=== PATIENT | female | born 1990 | race Caucasian/White ===

== ENCOUNTER 2017-11-11 15:36 | Emergency (ER) | payer MEDICAID, SELFPAY ==
[2017-11-11 15:37] VITALS: BP 129/85; PULSE 109; RESP 16; TEMP 37.3; O2SAT 100; BMI 17.6
[2017-11-11 16:01] VITALS: BP 118/78; PULSE 95; RESP 14; O2SAT 98
[2017-11-11 16:10] LABS: Hematocrit 42.7 % (37-47); Hemoglobin 14.4 g/dl (12.0-15.0); Mean Corp Hgb Conc 33.7 g/gl (32-36); Mean Corpuscular Hgb 32.1 pg (27.0-32.0); Mean Corpuscular Volume 95.1 fL (81-99); Mean Platelet Vol. 10.1 fl (6.2-12.0); Platelet Count 181 K/mm3 (150-450); RBC Distribution Width CV 12.5 % (11.6-14.6); RBC Distribution Width SD 42.6 fl (35.1-43.9); Red Blood Count 4.49 M/mm3 (4.2-5.4); White Blood Count 10.7 K/mm3 (4.4-11.0)
[2017-11-11 16:15] LABS: Scan Indicated on CBC? Y/N NO
[2017-11-11 16:31] LABS: Anion Gap 7 (5-15); BUN 16 mg/dL (7-18); Calcium,Total 8.8 mg/dL (8.5-10.1); Chloride 107 mmol/L (98-107); EST Glomerular Filtration Rate 106 mL/min (>60); Est Glom Filt Rate - Afr Amer 128 mL/min (>60); Estimated Creatinine Clearance 85.38 ml/min; Glucose 96 mg/dL (74-106); Potassium 3.6 mmol/L (3.5-5.1); Sodium Level 140 mmol/L (136-145)
[2017-11-11 16:40] LABS: Pregnancy, Serum, hCG Quali. NEGATIVE Negative (0-9 Nonpreg)
--- NOTE | 2017-11-11 16:58 | ED.DCSUM_ITS ---
- ER Visit Summary Date of Service: 11/11/17 Chief Complaint: [] Abdominal pain History of Present Illness: The patient is a 27 F [] complaining of mild left lower quadrant abdominal pain, nausea with concern for possible ectopic . When asked the patient was she said that she took a pretty test at home it was negative however her boss has forced me to come to make sure I do not have an ectopic . Patient reports she had copper tubal tubal ligation coiling procedure done successfully a few years ago. She reports she has not missed any periods. No other complaints at this time. Patient is conversational during history and physical exam. Physical Examination: [] Afebrile, vital signs stable. Abdomen is soft and nontender. No guarding or rebound tenderness. Remainder of exam is unremarkable. Test Results: [] CBC, BMP, serum hCG negative. Emergency Department Course and Treatment: [] Patient evaluated and labs are negative. HCG was negative. At this time she has a very benign presentation and will be discharged to follow-up with her primary care physician. Treatment Plan: [] Follow-up with PCP. Disposition: [] Discharge, stable. Impression: [] Abdominal pain, unknown etiology This note was generated with [employer] dictation software. It may contain incorrect words, spelling, and punctuation that were not noted in review of the chart prior to signing ED Disposition - Plan for ED Patient: Chief Complaint: Abd Pain Referrals: Marko Petersen MD [Primary Care Provider] -
--- NOTE | 2017-11-11 17:00 | ED.DEP ---
ED Disposition - Plan for ED Patient: Disposition: Home or Assisted Living Chief Complaint: Abd Pain Instructions: ED Abdominal Pain Unkn Cause Referrals: Marko Petersen MD [Primary Care Provider] -
[2017-11-11 17:11] VITALS: BP 112/70; PULSE 86; RESP 19; O2SAT 98
== END 2017-11-11 17:12 | disposition home or self-care (01) ==
PROVIDERS: Emergency Provider Emergency Medicine; Family Provider Family Medicine; PCP Family Medicine
DX: R10.32 Left lower quadrant pain (principal); F32.9 Major depressive disorder, single episode, unspecified; Z79.899 Other long term (current) drug therapy; Z72.0 Tobacco use
CPT/HCPCS: 80048; 84703; 85027; 99284

== ENCOUNTER 2018-01-16 11:34 | Emergency (ER) | payer MEDICAID, SELFPAY ==
[2018-01-16 11:34] VITALS: BP 120/83; PULSE 109; RESP 16; TEMP 36.6; O2SAT 98; BMI 15.1
--- NOTE | 2018-01-16 13:19 | RAD_ITS ---
STUDY: X-RAY - LEFT FOOT CLINICAL: Female, 27 years old. Swelling and bruising following injury. TECHNIQUE: 3 view(s) of the foot. COMPARISON: None. FINDINGS: Normal talus, calcaneus, and tarsal bones. Normal visualized subtalar, talonavicular, calcaneocuboid, tarsal and tarsometatarsal articulations. Normal metatarsi. Normal metatarsophalangeal joint of the great toe. Normal tibial and fibular sesamoid bones. Normal interphalangeal joint of the great toe. Normal phalanges of the great toe. Normal second through fifth metatarsophalangeal joints. Normal interphalangeal joints and phalanges of the lesser toes. The soft tissue structures are unremarkable. RAD/Foot min 3 Views IMPRESSION: Normal x-ray examination of the foot. Electronically Signed: Emanuel Benton MD at 13:55 EDT Tel [phone], Service support ,
--- NOTE | 2018-01-16 13:27 | ED.VISSUMM ---
- ER Visit Summary Date of Service: 01/16/18 Chief Complaint: Left foot pain History of Present Illness: The patient is a 27 F presenting with left foot pain. Patient states she fell on Tuesday. She was seen at [facility] and was diagnosed with 5th metatarsal fracture. She was given a postop shoe and crutches. She states that since then she has tripped over a cat and stepped on a lego. She did not hit her head or lose consciousness. She is trying not to bear weight. She complains of persistent pain in left foot. Denies other injury. Physical Examination: Vitals are stable. Patient is afebrile. Alert no acute distress. HEENT exam is unremarkable. Neck is nontender Lungs are clear and equal bilaterally. Heart is regular rate and rhythm. Extremities left foot ecchymosis, tenderness lateral left foot. Skin is warm and dry. No focal neurologic deficit. Remainder of exam is unremarkable. Emergency Department Course and Treatment: Left foot x-ray shows no acute process. Patient is advised to ice and elevate. She was given boot orthosis. Advised to use NSAIDs for pain. Advised to follow with primary care physician. Advised return to ED for worsening complaints. Disposition: Discharge home Impression: Left foot contusion This note was generated with [employer] dictation software. It may contain incorrect words, spelling, and punctuation that were not noted in review of the chart prior to signing ED Disposition - Plan for ED Patient: Chief Complaint: Lower Extremity Injury Instructions: ED Contusion Foot Referrals: Marko Petersen MD [Primary Care Provider] -
--- NOTE | 2018-01-16 13:30 | ED.DCSUM_ITS ---
- ER Visit Summary Date of Service: 01/16/18 Chief Complaint: Left foot pain History of Present Illness: The patient is a 27 F presenting with left foot pain. Patient states she fell on Tuesday. She was seen at [facility] and was diagnosed with 5th metatarsal fracture. She was given a postop shoe and crutches. She states that since then she has tripped over a cat and stepped on a lego. She did not hit her head or lose consciousness. She is trying not to bear weight. She complains of persistent pain in left foot. Denies other injury. Physical Examination: Vitals are stable. Patient is afebrile. Alert no acute distress. HEENT exam is unremarkable. Neck is nontender Lungs are clear and equal bilaterally. Heart is regular rate and rhythm. Extremities left foot ecchymosis, tenderness lateral left foot. Skin is warm and dry. No focal neurologic deficit. Remainder of exam is unremarkable. Emergency Department Course and Treatment: Left foot x-ray shows no acute process. Patient is advised to ice and elevate. She was given boot orthosis. Advised to use NSAIDs for pain. Advised to follow with primary care physician. Advised return to ED for worsening complaints. Disposition: Discharge home Impression: Left foot contusion This note was generated with [employer] dictation software. It may contain incorrect words, spelling, and punctuation that were not noted in review of the chart prior to signing ED Disposition - Plan for ED Patient: Chief Complaint: Lower Extremity Injury Instructions: ED Contusion Foot Referrals: Marko Petersen MD [Primary Care Provider] -
--- NOTE | 2018-01-16 15:26 | ED.DEP ---
ED Disposition - Plan for ED Patient: Chief Complaint: Lower Extremity Injury Instructions: ED Contusion Foot Referrals: Marko Petersen MD [Primary Care Provider] -
[2018-01-16 15:32] VITALS: BP 108/77; PULSE 62; RESP 15; O2SAT 98
== END 2018-01-16 15:33 | disposition home or self-care (01) ==
PROVIDERS: Emergency Provider Emergency Medicine; Family Provider Family Medicine; PCP Family Medicine
DX: S90.32XA Contusion of left foot, initial encounter (principal); W19.XXXA Unspecified fall, initial encounter; Y93.9 Activity, unspecified; Y92.9 Unspecified place or not applicable; Z72.0 Tobacco use
CPT/HCPCS: 73630; 99283

== ENCOUNTER 2021-06-04 10:12 | Day surgery (SDC) | payer MEDICAID, SELFPAY ==
[2021-06-04] VITALS (7 sets, daily range): BP systolic 91–100; BP diastolic 60–73; PULSE 44–74; RESP 16; TEMP 36.1–36.7; O2SAT 96–99; BMI 18.5
--- NOTE | 2021-06-04 | IMM_PTH ---
PATIENT: JUAN MANUEL ANDERSON LOC: [facility] [place] U#:[id number] AGE/SX: 31/F ROOM: RE06/04/[address]: Dr. Niurka Rider DO : 1990 BED: DIS: 06/04/2021 SPEC #: [id number] RECD: 06/05/21 13:48 STATUS: RONNA REReba #: [id number] HANNA: 06/04/21 00:[address]: Niurka Rider DEPT: IMMUNOHISTOCHEMISTRY RECD BY: Vivien Jerez ENTERED: 06/05/21 13:49 SP TYPE: IMMUNO OTHR DR: Dr. Marko Petersen MD Tissues: A - Uterine cervix, NOS B - Endocervical Procedures: p16 (initial) KI-67 (add) PHYSICIAN & INSTITUTION [place] [address] SPECIMEN INFORMATION: Tissue Source: A ? Cervical cone, biopsy, B ? Endocervical curettings Clinical Info: LEEP, high-grade cervical dysplasia Specimen Number: [id number] A4 & B CPT code: 63734 x2, 57483 x2 METHODOLOGY: Deparaffinized sections of prefer/formalin-fixed tissue or PAP/DQ stained slides are incubated with monoclonal/polyclonal antibodies/oligonucleotide probes. Localization is made via biotin free immunoperoxidase method. Appropriate controls are performed and reacted as expected. Results on target cell population are indicated in the following table: RESULTS: ANTIBODY / CLONE RESULT Block A4 P16 (E6H4) positive, block staining Ki-67 (30-9) positive, high Block B1 P16 (E6H4) positive, block staining Ki-67 (30-9) positive, high These tests were developed and their performance characteristics determined by [facility]. They may not have been cleared or approved by the U.S. Food and Drug Administration. The FDA has determined that such clearance or approval is not necessary. The above immunohistochemical/dualISH markers are ordered and reviewed by the Pathologist. INTERPRETATION: A. Cervix, cone biopsy: Moderate to severe squamous dysplasia. B. Endocervical curettings: Moderate squamous dysplasia. SJ:eva 06/05/2021
[2021-06-04] MEDS: Lactated Ringers 1,000 ML 15 ML IV (10:35)
[2021-06-04 10:47] LABS: Internal QC Validated? YES +Cl - CLEAR BKGD
[2021-06-04 10:50] LABS: Pregnancy, Urine Negative Negative
[2021-06-04 10:54] LABS: Hematocrit 41.2 % (37-47); Hemoglobin 14.1 g/dL (12.0-15.0); Mean Corp Hgb Conc 34.2 g/dL (32-36); Mean Corpuscular Hgb 32.6 pg (27.0-32.0); Mean Corpuscular Volume 95.2 fL (81-99); Platelet Count 176 K/mm3 (150-450); RBC Distribution Width CV 12.5 % (11.6-14.6); RBC Distribution Width SD 44.2 fl (35.1-43.9); Red Blood Count 4.33 M/mm3 (4.2-5.4); White Blood Count 9.1 K/mm3 (4.4-11.0)
--- NOTE | 2021-06-04 11:01 | PCM.DC ---
Discharge Instructions Diet Discharge Diet: No restrictions Activity Discharge Activity: May Shower May resume sexual activity in: 4 weeks (No tampons, intercourse, hot tubs, tub baths for 4 weeks until your follow up visit) Weight Bearing Status: Weight bearing as tolerated Lifting Restrictions: Nothing heavier than 20 lbs for first 2 weeks Dressing / Incision Call your doctor if you observe: Fever of 101 or Higher, Numbness or Tingling, Change in Color, Inability to urinate, Inability to have a bowel movement, Using more than 1 pad per hour, Shortness of breath, Dizziness, Fainting spells, Swelling in the ankles, Chest pain, Increased palpitations (irregular heartbeat), Calf discomfort and Uncontrolled pain Follow Up Care Please Follow Up With: bria When: 1 week and 4 weeks Test Results: Test results from this visit will be discussed in further detail at your follow-up appointment, if applicable. Discharge Plan Admission Attending Provider: Niurka Rider Primary Care Provider: Marko Petersen Discharge Orders/Prescriptions Prescriptions: No Action hydroxyzine pamoate [Vistaril] 50 mg Capsule 50 mg PO QHS RF: 0 multivitamin Capsule 1 cap PO DAILY RF: 0 lamotrigine [Lamictal] 100 mg Tablet 100 mg PO QHS RF: 0 prazosin 2 mg Capsule 2 mg PO QHS RF: 0 escitalopram oxalate [Lexapro] 10 mg Tablet 15 mg PO DAILY RF: 0
[2021-06-04] MEDS: Lidocaine 1%/Epi 1:200 (30ml) 30 ML AMPUL (11:03)
--- NOTE | 2021-06-04 11:04 | PCM.OP.BLANK ---
Problems Associated Problem List Diagnoses (1) FITO II (cervical intraepithelial neoplasia II): (2) HPV test positive: (3) History of loop electrical excision procedure (LEEP): Operative Report Date of Procedure: 06/04/21 Indications: Patient had a LEEP procedure in the office for high-grade dysplasia with positive margins. On follow-up colposcopy FITO-2 was noted with high-grade dysplasia on endocervical curettings. HPV test was positive for 16. Risk, benefits, alternatives to a cold knife conization discussed the patient desired to proceed. Surgeon: Niurka Rider DO Motion Picture Scene Builder: None Anesthesia: MAC with local Start time: 112 Stop time: 113 Procedure: Cervical cold knife conization with endocervical curettings Specimen: Cervical cone biopsy marked at 12 o'clock and endocervical curettings Blood loss: < 50 cc Fluids: 700 cc Complications: None Procedure: The patient was taken to the operating room where MAC anesthesia was found to be adequate. She was prepped and draped in the dorsal lithotomy position using yellowfin stirrups. A weighted speculum was placed in the vagina to expose the cervix. A single-tooth tenaculum was placed on the anterior lip of the cervix. Good visualization of the cervix was noted. Lugol's solution was placed over the cervix. High-grade dysplasia was noted between the 10 and 12 o'clock position on the cervix. 10 cc of 1% lidocaine with epinephrine was infiltrated circumferentially around the cervix. Using an angled 11 blade, a cone biopsy was taken of the cervix. The cone biopsy was marked at the 12 o'clock position. An endocervical curettage was performed. The cervical cone biopsy and ECC were sent to pathology for review. The cervical bed was made hemostatic with Bovie cautery and Monsel solution. All instruments were removed from the vagina. Vaginal sweep was performed. Instrument counts were correct. Bleeding was hemostatic. Patient was taken to recovery in stable condition.
[2021-06-04] MEDS: Iodine/Potassium Iodide 14ML Bottle 1 DRP TOPICAL (11:21)
[2021-06-04] MEDS: FERRIC SUBSULFATE 8 GM SOLN (11:32)
--- NOTE | 2021-06-04 12:10 | CONE_PTH ---
PATIENT: JUAN MANUEL ANDERSON LOC: [facility] [place] U#:[id number] AGE/SX: 31/F ROOM: RE06/04/[address]: Dr. Niurka Rider DO : 1990 BED: DIS: 06/04/2021 SPEC #: [id number] RECD: 06/04/21 12:57 STATUS: RONNA JACKIE #: [id number] HANNA: 06/04/21 12:[address]: Niurka Rider DEPT: SURGICAL PATHOLOGY RECD BY: Lolis Sweeney ENTERED: 06/04/21 13:31 SP TYPE: Leep Cone ALICIA DR: Dr. Marko Petersen MD Tissues: A - UTERINE CERVIX LEEP B - Endocervical Procedures: Surgery Specimen Level IV Surgery Specimen Level V HEADER OPERATION: Cold cone PRE-OP DIAGNOSIS: History of LEEP, high-grade cervical dysplasia TISSUE SUBMITTED: A ? Biopsy, cervical cone, suture at 12 o?clock, B ? Endocervical curettings MICROSCOPIC DIAGNOSIS A. Cervix, cone biopsy: Moderate to severe squamous dysplasia with HPV changes (HGSIL, FITO II-III). Dysplastic changes also involving the endocervical glands. Endocervical resection margin is positive for dysplastic changes. Mild chronic inflammation. See comment. B. Endocervical curettings: Detached and unoriented fragments of squamous epithelium with moderate squamous dysplasia (HGSIL, FITO II). Fragments of benign endocervical epithelium, benign endometrial tissue, blood and mucous. See comment. ASHWINI:eva 06/05/2021 COMMENT A & B. Immunohistochemistry ([id number]) for surrogate HPV marker (p16) supports the above diagnosis. MICROSCOPIC DESCRIPTION Slides are reviewed. GROSS DESCRIPTION A - Received in fixative is one container labeled with the patient's name and designated biopsy, cervical cone, suture at 12 o?clock. The specimen consists of a previously opened gutierrez, indurated tissue consistent with cervical conization measuring 2 x 1.5 x 0.6 cm. No mucosal lesion is identified. Nonmucosal surface is inked black. The specimen is serially sectioned and submitted entirely in four cassettes as follows: 1 ? 12 to 3 o?clock, 2 ? 3 to 6 o?clock, 3 ? 6 to 9 o?clock, 4 ? 9 to 12 o?clock. B - Received in fixative is one container labeled with the patient's name and designated endocervical curettings. The specimen consists of multiple fragments of hemorrhagic mucoid tissue that in aggregate measure 2.5 x 0.5 x 0.1 cm. The specimen is totally submitted in one cassette. / ASHWINI:eva 06/04/21 TC:5 CPT: 23316, 32385
[2021-06-04] MEDS: HYDROcodone Bitartrate/Apap 5/325 Tablet PO (12:51)
== END 2021-06-04 13:25 | disposition home or self-care (01) ==
LOC: SDC 10:14 → AC 10:15
PROVIDERS: Anesthesiology; PCP Family Medicine; Referring Provider Obstetrics & Gynecology; Visit Provider Obstetrics & Gynecology
PROC: 0UBC7ZZ Excision of Cervix, Via Natural or Artificial Opening (ICD-10-PCS; CPT 57522; principal; 2021-06-04 11:55)
DX: N87.1 Moderate cervical dysplasia (principal); M19.90 Unspecified osteoarthritis, unspecified site; F32.A Depression, unspecified; F41.9 Anxiety disorder, unspecified; Z79.899 Other long term (current) drug therapy
CPT/HCPCS: 57520; 81025; 85027; 86850; 86900; 86901; 87426; 88305; 88307; 88341; 88342; C9803; J7120; J2405

== ENCOUNTER 2022-04-09 08:49 | Day surgery (SDC) | payer OTHER, SELFPAY ==
[2022-04-03 11:41] LABS: Hematocrit 43.4 % (37-47); Hemoglobin 14.5 g/dL (12.0-15.0); Mean Corp Hgb Conc 33.4 g/dL (32-36); Mean Corpuscular Hgb 32.6 pg (27.0-32.0); Mean Corpuscular Volume 97.5 fL (81-99); Mean Platelet Vol. 10.5 fl (6.2-12.0); Platelet Count 193 K/mm3 (150-450); RBC Distribution Width CV 12.6 % (11.6-14.6); RBC Distribution Width SD 45.1 fl (35.1-43.9); Red Blood Count 4.45 M/mm3 (4.2-5.4); White Blood Count 12.6 K/mm3 (4.4-11.0)
[2022-04-03 11:50] LABS: International Normalized Ratio 1.1; Prothrombin Time (Protime)PT. 13.7 SECONDS (11.7-14.9)
[2022-04-03 11:51] LABS: Partial Thromboplast Time 28.3 Seconds (24.1-36.2)
[2022-04-03 12:14] LABS: AST(SGOT) 12 U/L (15-37); Alanine Aminotransfer ALT/SGPT 21 U/L (13-56); Albumin, Serum 3.7 g/dL (3.2-5.0); Alkaline Phosphatase 68 U/L (45-117); Bilirubin, Direct 0.13 mg/dL (0.00-0.30); Globulin 4.1 g/dL (2.2-4.2); Protein, Total 7.8 g/dL (6.4-8.2)
[2022-04-09] VITALS (7 sets, daily range): BP systolic 85–100; BP diastolic 47–62; PULSE 56–91; RESP 14–18; TEMP 36.3–37.3; O2SAT 96–100; BMI 17.0
--- NOTE | 2022-04-09 | IMM_PTH ---
PATIENT: JUAN MANUEL ANDERSON [place] [facility] [id number] AGE/SX: 32/F ROOM: RE04/09/[address]: Dr. Niurka Rider DO : 1990 BED: DIS: 04/09/2022 SPEC #: [id number] RECD: 04/13/22 14:17 STATUS: RONNA REQ #: [id number] HANNA: 04/09/22 00:[address]: Niurka Rider DEPT: IMMUNOHISTOCHEMISTRY RECD BY: Vivien Jerez ENTERED: 04/13/22 14:19 SP TYPE: IMMUNO OTHR DR: MD Dr. Marko Meyer MD Tissues: Uterus, NOS Procedures: p16 (initial) KI-67 (add) P16 (add) PHYSICIAN & INSTITUTION [place] [address] SPECIMEN INFORMATION: Tissue Source: Uterus, hysterectomy Clinical Info: CKC with positive margins, persistent positive HPV and abnormal pap Specimen Number: [id number] #3, 5 & 6 CPT code: 74430, 59805 x5 METHODOLOGY: Deparaffinized sections of prefer/formalin-fixed tissue or PAP/DQ stained slides are incubated with monoclonal/polyclonal antibodies/oligonucleotide probes. Localization is made via biotin free immunoperoxidase method. Appropriate controls are performed and reacted as expected. Results on target cell population are indicated in the following table: RESULTS: ANTIBODY / CLONE RESULT Block 3 P16 (E6H4) positive, block-like Ki-67 (30-9) positive, moderate Block 5 P16 (E6H4) positive, block-like Ki-67 (30-9) positive, moderate Block 6 P16 (E6H4) positive, block-like Ki-67 (30-9) positive, moderate These tests were developed and their performance characteristics determined by [facility]. They may not have been cleared or approved by the U.S. Food and Drug Administration. The FDA has determined that such clearance or approval is not necessary. The above immunohistochemical/dualISH markers are ordered and reviewed by the Pathologist. INTERPRETATION: Uterus, hysterectomy: Cervix with moderate squamous dysplasia (HSIL). AM:eva 04/14/2022
[2022-04-09 09:25] LABS: Internal QC Validated? YES +Cl - CLEAR BKGD; Pregnancy, Urine Negative Negative
[2022-04-09] MEDS: dexAMETHasone 10 MG/ML Vial 8 MG IV (09:25)
[2022-04-09] MEDS: Phenazopyridine 95 MG Tablet 190 MG PO (09:56)
[2022-04-09] MEDS: Gabapentin 600 MG Tablet PO (09:57)
[2022-04-09] MEDS: Acetaminophen 500 MG Tablet 1000 MG PO (09:57)
[2022-04-09] MEDS: Celecoxib 200 MG Capsule 400 MG PO (09:57)
[2022-04-09] MEDS: Scopolamine 1mg/72hr Patch 1 PATCH TD (09:57)
[2022-04-09] MEDS: Lactated Ringers 1,000 ML 40 ML IV (09:57)
[2022-04-09] MEDS: Enoxaparin 40 MG/0.4 ML Syringe SC (09:59)
[2022-04-09 10:26] LABS: Bedside Glucose 134 mg/dL (74-106)
--- NOTE | 2022-04-09 10:45 | HYST_PTH ---
PATIENT: JUAN MANUEL ANDERSON LOC: [facility] [place] U#:[id number] AGE/SX: 32/F ROOM: RE04/09/[address]: Dr. Niurka Rider DO : 1990 BED: DIS: 04/09/2022 SPEC #: [id number] RECD: 04/09/22 14:15 STATUS: RONNA JACKIE #: [id number] HANNA: 04/09/22 10:[address]: Niurka Rider DEPT: SURGICAL PATHOLOGY RECD BY: Francisco Del Valle ENTERED: 04/12/22 07:59 SP TYPE: HYSTERECT OTHR DR: MD Dr. Marko Meyer MD Tissues: Uterus, NOS Procedures: Surgery Specimen Level V HEADER OPERATION: Total laparoscopic hysterectomy, salpingectomy, cystoscopy PRE-OP DIAGNOSIS: CKC with positive margins, persistent positive HPV and abnormal pap TISSUE SUBMITTED: Cervix, uterus and bilateral fallopian tubes MICROSCOPIC DIAGNOSIS Uterus, hysterectomy: Cervix ? mild to moderate squamous dysplasia, FITO I-II (HSIL). Changes consistent with HPV cytopathic effect. Chronic inflammation and squamous metaplasia. Endometrium ? secretory endometrium. Myometrium ? focal superficial adenomyosis. Right fallopian tube - No pathologic change. Left fallopian tube - No pathologic change. AM:eva 04/13/2022 COMMENT Results from immunohistochemistry ([id number]) for surrogate HPV marker (p16) will be reported separately. Case has been reviewed in consultation with Dr. Salcedo who concurs with the above diagnosis. IDC:SJ MICROSCOPIC DESCRIPTION Slides are reviewed. GROSS DESCRIPTION Received in fixative is one container labeled with the patient's name and designated cervix, uterus and bilateral fallopian tubes. The specimen consists of a hysterectomy specimen consisting of uterus with cervix, attached left fallopian tube and detached right fallopian tube. The uterus with cervix weighs 102 and measures 9 x 7 x 5 cm. The serosal surface is ragged. The ectocervical mucosa is unremarkable. The external os is slit-like in contour. The endocervical canal measures 3 cm in length. The endocervical mucosa is gutierrez, glistening and unremarkable. The resection margin of the cervix in inked black. The triangular endometrial cavity measures 4.5 cm in length and 2.5 cm in width. The endometrium is gutierrez, glistening without any mass lesion and measures up to 0.3 cm in thickness. An endometrial polyp is noted measuring 1 x 1 x 0.5 cm. It is noted in the anterior uterine wall. Sections of the uterine wall do not reveal any mass lesion and it measures up to 2.5 cm in thickness. The right fallopian tube measures 6.5 cm in length and 0.7 cm in diameter. The fimbrial end is identified. Sections reveal unremarkable cut surfaces. The proximal portion of fallopian tube shows a metallic coil device, consistent with Essure device. The left fallopian tube measures 5 cm in length and up to 1 cm in diameter. It is similar appearance to right. No metallic coil device is noted in this piece; however, the cornu end of the uterus shows a portion of metallic coil device. Naval Architect Specialist sections are submitted in 15 cassettes as follows: 1-8 - cervix like a cone (1 & 2 - 12 to 3 o?clock, 3 & 4 - 3 to 6 o?clock, 5 & 6 - 6 to 9 o?clock, 7 & 8 - 9 to 12 o?clock), 9 & 10 - anterior uterine wall, 11 & 12 - posterior uterine wall, 13 - endometrial polyp with underlying uterine wall, entirely submitted, 14 - right fallopian tube, 15 - left fallopian tube. / SJ:eva 04/12/2022 TC:0 CPT: 37734
[2022-04-09] MEDS: Cefazolin 2 GM in 0.9% Normal Saline 100 ML IV (11:05)
--- NOTE | 2022-04-09 13:20 | DCINST_ITS ---
Discharge Instructions Diet Discharge Diet: No restrictions Activity Discharge Activity: May Not Drive (While taking percocet. You can drive once you feel strong enough to slam on a brake or turn a steering wheel sharply) and May Shower (Once you are more than 24 hours out from surgery) May resume sexual activity in: 6-8 weeks (No intercourse, tampons, or soaking in water for 6 weeks until your appointment) Ice area for (Minutes): 15 Weight Bearing Status: Weight bearing as tolerated Lifting Restrictions: Nothing greater than 10 lbs for 6-8 weeks until follow up Dressing / Incision Call your doctor if your incision/area has: Continuous Slow Oozing, Sudden Increased Bleeding, Increased Pain/ Swelling, Increased Redness, Foul Smelling Discharge and Swelling at the incision site Call your doctor if you observe: Fever of 101 or Higher, Coldness, Increased Pain, Numbness or Tingling, Change in Color, Inability to urinate, Inability to have a bowel movement, Using more than 1 pad per hour, Shortness of breath, Dizziness, Fainting spells, Swelling in the ankles, Chest pain, Increased palpitations (irregular heartbeat), Calf discomfort and Uncontrolled pain Suture Line Care: Avoid Pulling/Pushing and Avoid Pinching/Bending Remove Dressing in: leave in place till F/U Cleanse incision/area with: Soap & Water Follow Up Care Please Follow Up With: Niurka Rider DO When: 1 week post op 6 week post op Test Results: Test results from this visit will be discussed in further detail at your follow- up appointment, if applicable. Discharge Plan Admission Primary Reason for Your Visit: surgery Attending Provider: Niurka Rider Primary Care Provider: Marko Petersen Consulting Providers: Philippe Miranda Discharge Orders/Prescriptions Prescriptions: New oxycodone-acetaminophen [Percocet] 5-325 mg tablet 1 tab PO Q6H PRN (Reason: pain) 7 Days Qty: 20 0RF ibuprofen 600 mg tablet 600 mg PO Q6H PRN (Reason: pain) Qty: 30 0RF docusate sodium [Colace] 100 mg capsule 100 mg PO BID Qty: 30 0RF Continued multivitamin Capsule 1 cap PO DAILY lamotrigine [Lamictal] 100 mg Tablet 100 mg PO QHS prazosin 2 mg Capsule 1 mg PO QHS escitalopram oxalate [Lexapro] 10 mg Tablet 15 mg PO DAILY Referrals / Follow Up: Marko Petersen MD [Primary Care Provider] - Disposition Disposition (needs filled in before D/C Order can be placed): Home, Self Care
--- NOTE | 2022-04-09 13:24 | PCM.OPRPT ---
Problems Associated Problem List Diagnoses (1) FITO II (cervical intraepithelial neoplasia II): (2) HPV test positive: (3) History of loop electrical excision procedure (LEEP): Report of Operation Date of Procedure: 04/09/22 Pre-Operative Diagnosis: CIN2 with positive margins on LEEP, persistent abnormal pap smear and +HPV s/p LEEP Post-Operative Diagnosis: As above Surgery/Procedure Performed:: TLH, BS, cystoscopy Description of Surgical Findings:: Normal appearing pelvis. Normal appearing uterus and bilateral adnexa. Surgeon: Niukra Rider reverberatory furnace supervisor: Rebecca Sanchez Type of Anesthesia: General Special Medications: None Specimen's removed: Uterus, cervix, bilateral fallopian tubes Drains: Hidalgo removed at end of case Estimated Blood Loss (mL): 100 Fluids Replaced: 1500 cc Description of Procedure: The patient was taken to the operating room where general anesthesia was induced. She was prepped and draped in the dorsal lithotomy position using yellowfin stirrups. From below a weighted speculum was placed to expose the cervix. The anterior lip of the cervix was grasped with a single-tooth tenaculum. The uterus sounded to 9 cm. The cervix was serially dilated. A uterine manipulator with a plastic cup was placed and sutured in. A Hidalgo catheter was placed. The single-tooth tenaculum and weighted speculum were removed. Gloves were changed and attention was turned to the abdominal portion of the procedure. Local was infiltrated at all port sites. An infraumbilical incision was made to accommodate a 5 mm port. The 5 mm port was placed under direct visualization using laparoscope. Once confirmed intraperitoneal CO2 insufflation was initiated. The bowel was inspected and no obvious injuries were noted upon entry. A left lateral 5 mm port was placed. A right lateral 5 mm port was placed. The uterus and bilateral adnexa were normal-appearing. The pelvis was normal-appearing. On the left side the left fallopian tube was lifted towards the anterior abdominal wall to expose the mesosalpinx. The mesosalpinx was serially clamped, cauterized, and ligated using the LigaSure device hugging adjacent to the tube until reaching level of the cornua. Once at the level of the cornua the tube was ligated and cut, and removed along with the Essure coil to be sent to pathology. Following this the left utero-ovarian ligament was clamped, sealed, and cut the ovarian pedicle was noted to be hemostatic. Attention was then turned to the other side. The same process was repeated on the right sequentially clamping, ligating, and cutting the mesosalpinx until reaching the level of the cornua. The right utero-ovarian ligament was then clamped, sealed, and cut. The ovarian pedicle was noted hemostatic. On the left side the round ligament was then ligated and cut. The anterior leaf of the broad ligament was then taken down on the left dissecting towards the peritoneal reflection at the base of the bladder and adjacent to the cervix. The same process was then repeated on the right side such that both sides met and the anterior leaflet had been appropriately skeletonized. Once the bladder was appropriately dissected free from the lower anterior uterine segment and the tissue was skeletonized, the uterine arteries were bilaterally clamped and ligated. Pedicles were noted to be hemostatic. At the level of the plastic cup of the uterine manipulator, the vaginal vault was incised circumferentially with monopolar hook. The uterus, right fallopian tube, and cervix were delivered through the vagina and sent to pathology for review along with the left fallopian tube. The posterior cuff was run from below using Vicryl to achieve hemostasis. There was some bleeding noted from a left pedicle and a suture was placed for hemostasis. Good hemostasis of the pedicles were noted. The vaginal vault was then closed with Vicryl using several [id number] sutures. The vaginal vault was noted to be hemostatic. A sponge was placed into the vagina. Gloves were changed and we went to the abdominal portion of the procedure again. The abdomen was insufflated. Inspection from above of the vaginal cuff and pedicles showed hemostasis. The pelvis was irrigated. Hemostasis was again noted. Tamera was placed over the pedicles and the vaginal vault. The ports were removed and the abdomen was exsufflated. The skin was closed with Monocryl and glue. From below a cystoscopy was performed noting an intact and normal-appearing bladder with good bilateral ureteral jets. The cystoscope was then removed. The bladder was drained. The sponge was removed from the vagina. Vaginal sweep was performed. Instrument, sponge, needle counts were correct. The patient was taken to recovery in stable condition. [facility] Press Hand Dr. Rebecca Sanchez was present for the entire case. She assisted with draping the patient, removal of the uterus, and closure. Grafts/Implants Used: None Procedure Start Time: 11:35 Procedure Stop Time: 13:17 Complications None Admit VTE Documentation VTE Present on Admission: No VTE Mechan Device Prophylaxis: SCD's
[2022-04-09] MEDS: Lactated Ringers @ 70 MLS/HR 70 ML IV (14:33)
== END 2022-04-09 15:44 | disposition home or self-care (01) ==
LOC: SDC 08:50 → AC 08:52
PROVIDERS: Anesthesiology; PCP Family Medicine; Referring Provider Family Medicine; Visit Provider Obstetrics & Gynecology
PROC: 0UT94ZZ Resection of Uterus, Percutaneous Endoscopic Approach (ICD-10-PCS; CPT 58571; principal; 2022-04-09 10:25)
DX: N87.1 Moderate cervical dysplasia (principal); F20.9 Schizophrenia, unspecified; N80.03 Adenomyosis of the uterus; F17.210 Nicotine dependence, cigarettes, uncomplicated; F12.90 Cannabis use, unspecified, uncomplicated; F41.9 Anxiety disorder, unspecified; F32.A Depression, unspecified; R10.2 Pelvic and perineal pain; Z79.899 Other long term (current) drug therapy
CPT/HCPCS: 58571; 52000; 00840; 80076; 81025; 82962; 83735; 85027; 85610; 85730; 86850; 86900; 86901; 88307; 88341; 88342; J7120; J2405; J3475

== ENCOUNTER 2023-04-02 09:22 | Emergency (ER) | payer MEDICAID, SELFPAY ==
[2023-04-02 09:23] VITALS: BP 122/84; PULSE 101; RESP 18; TEMP 36.4; O2SAT 100; BMI 16.1
--- NOTE | 2023-04-02 09:36 | EDS_ITS ---
HPI History of Present Illness Chief Complaint: Dental Informant: patient and spouse/S.O. Narrative Narrative: Presents with right-sided facial swelling. Patient's had some bad teeth for a while. But she cannot get into see a dentist. But they really have not been hurting. She noticed some swelling starting last evening and is little bit more today. She did notice a little soreness of the tooth last evening so she put temporary filling material in there. She has no fevers or chills. She states it really does not hurt much. But she is swollen and she knows there is likely an infection. Nothing really makes it better or worse. It is a little bit worse with chewing. [facility] Medical History (Updated 04/02/23 @ 09:[address] Jakob Swann MD) Anxiety Arthritis Depression Dietary restriction Easy bruising Encounter for Essure implantation Heartburn History of edema History of post traumatic stress disorder History of stress test Leg cramps Marijuana use Migraine headache PTSD (post-traumatic stress disorder) Schizophrenia Smoker Syncope Wears glasses Home Medications escitalopram oxalate 10 mg tablet (Lexapro) 15 mg PO DAILY DEPRESSION 05/29/21 [History Last Taken Unknown] lamotrigine 100 mg tablet (Lamictal) 100 mg PO QHS PTSD 05/29/21 [History Last Taken Unknown] multivitamin 1 cap PO DAILY 05/29/21 [History Last Taken Unknown] prazosin 2 mg capsule 1 mg PO QHS SLEEP 05/29/21 [History Last Taken Unknown] docusate sodium 100 mg capsule (Colace) 100 mg PO BID #30 caps 04/09/22 [Rx Last Taken Unknown] ibuprofen 600 mg tablet 600 mg PO Q6H PRN pain #30 tabs 04/09/22 [Rx Last Taken Unknown] oxycodone-acetaminophen 5 mg-325 mg tablet (Percocet) 1 tab PO Q6H PRN pain 7 days #20 tabs 04/09/22 [Rx Last Taken Unknown] naproxen 500 mg tablet 500 mg PO BID #14 tabs 04/02/23 [Rx Last Taken Unknown] penicillin V potassium 500 mg tablet 500 mg PO 4X/DAY #40 tabs 04/02/23 [Rx Last Taken Unknown] Allergy/AdvReac Type Severity Reaction Status Date / Time codeine Allergy Hives Verified 04/09/22 09:44 sertraline [From Zoloft] AdvReac DEPRESSION Verified 04/02/23 09:23 Surgical History History of cone biopsy of cervix Hx of oral surgery Social History Smoking Status: Current every day smoker tobacco type: cigarettes ROS ROS ED Constitutional Constitutional ED: Denies chills or fever(s) Eyes Eyes: Denies change in vision ENT ENT ED: Reports other Details: See history of present illness. Cardiovascular Cardiovascular: Denies chest pain Respiratory/Chest Respiratory/Chest: Denies cough or dyspnea Gastrointestinal Gastrointestinal: Denies nausea or vomiting Musculoskeletal Musculoskeletal: Denies myalgias Integumentary Denies rash Allergic/Immunologic Allergic/Immunologic ED: Reports mouth swelling; Denies urticaria EXAM Physical Exam Narrative Exam Narrative: Patient is awake and alert. No acute distress. Carries on normal conversation. HEENT: She has obvious swelling in the right cheek area but it is not fluctuant or red. No sinus tenderness. Nasal passages are clear. Looking in her mouth she has dental carry with a temporary filling and erythema of the gum right below this area of swelling. I think this represents inflammatory response with a apical abscess. Her voice is normal handling secretions is normal. No lower dental/mandibular abscess. Heart is regular in rate about 95. No murmur. Const Vital Signs: 04/02/23 09:23 Temperature 97.5 F L Temperature Source Temporal Pulse Rate 101 H Respiratory Rate 18 Blood Pressure 122/84 H Blood Pressure Mean 96 Pulse Ox 100 Oxygen Delivery Method Room Air MDM MDM MDM Narrative Medical decision making narrative: Get the patient started on antibiotics. She denies any allergies. I will give her resource sheet for dental options. We discussed reasons to return. Discharge Plan Triage Chief Complaint: Dental ED Provider: Jakob Swann Dx/Rx/DC Orders Clinical Impression: Abscess, dental Instructions: ED Dental Abscess Prescriptions: New penicillin V potassium 500 mg tablet 500 mg PO 4X/DAY Qty: 40 0RF naproxen 500 mg tablet 500 mg PO BID Qty: 14 0RF No Action multivitamin Capsule 1 cap PO DAILY lamotrigine [Lamictal] 100 mg Tablet 100 mg PO QHS prazosin 2 mg Capsule 1 mg PO QHS escitalopram oxalate [Lexapro] 10 mg Tablet 15 mg PO DAILY oxycodone-acetaminophen [Percocet] 5-325 mg tablet 1 tab PO Q6H PRN (Reason: pain) 7 Days Qty: 20 0RF ibuprofen 600 mg tablet 600 mg PO Q6H PRN (Reason: pain) Qty: 30 0RF docusate sodium [Colace] 100 mg capsule 100 mg PO BID Qty: 30 0RF Primary Care Provider: Marko Petersen Referrals: Marko Petersen MD [Primary Care Provider] - Activity Restrictions/Additional Instructions: Follow-up with dentist as soon as possible. Disposition Disposition: Home, Self Care
== END 2023-04-02 10:09 | disposition home or self-care (01) ==
LOC: ED 09:48
PROVIDERS: Emergency Provider Emergency Medicine; PCP Family Medicine; Visit Provider Emergency Medicine
DX: K04.7 Periapical abscess without sinus (principal); F17.210 Nicotine dependence, cigarettes, uncomplicated
CPT/HCPCS: 99282